=== PATIENT | male | born 1965 | race American Indian/Alaskan Native ===

== ENCOUNTER 2017-04-15 00:31 | Emergency (ER) | payer SELFPAY ==
[2017-04-15 01:48] LABS: Basophils % (Auto) 0.7 % (0.0-1.8); Eosinophils % (Auto) 2.4 % (0.0-4.3); Hematocrit 42.6 % (35.5-45.6); Hemoglobin 14.1 gm/dl (11.8-15.2); Mean Corpuscular HGB Conc 33 % (32-34); Mean Corpuscular Hemoglobin 31 pg (28-32); Mean Corpuscular Volume 95 fl (84-94); Platelet Count 186 K/mm3 (140-440); White Blood Count 6.4 K/mm3 (4.5-11.0)
[2017-04-15 02:08] LABS: Alanine Aminotransferase 25 units/L (7-56); Albumin 4.4 g/dL (3.9-5); Albumin/Globulin Ratio 1.2 %; Alkaline Phosphatase 56 units/L (35-129); Anion Gap 13 mmol/L; Blood Urea Nitrogen 13 mg/dL (9-20); Calcium 9.3 mg/dL (8.4-10.2); Carbon Dioxide 30 mmol/L (22-30); Chloride 98.6 mmol/L (98-107); Glucose 84 mg/dL (75-100); Sodium 138 mmol/L (137-145); Total Protein 8.1 g/dL (6.3-8.2)
--- NOTE | 2017-04-15 02:25 | Cat Scan Report ---
FINAL REPORT EXAM: CT HEAD/BRAIN WO CON HISTORY: dizzy numbness lt hand COMPARISON: None available. TECHNIQUE: Axial images obtained skull base through vertex. FINDINGS: No acute intracranial hemorrhage, midline shift or pathologic extra axial fluid collection. Ventricles and cisterns are normal in size and configuration for the patient's age. Mendez-white differentiation preserved. Calvarium grossly intact. Visualized para-nasal sinuses and mastoid air cells are clear. Visualized orbits are grossly unremarkable. IMPRESSION: No grossly acute intracranial abnormality.
[2017-04-15 02:31] LABS: Urine Drugs of Abuse Note Disclamer
[2017-04-15 03:16] LABS: Bilirubin,Urine NEG (Negative); Blood,Urine NEG (Negative); Ketones,Urine TR mg/dL (Negative); Leukocyte Esterase,Urine NEG (Negative); Mucus,Urine 1+ /HPF; Nitrite,Urine NEG (Negative); Protein,Urine <15 mg/dL mg/dL (Negative); WBC,Urine < 1.0 /HPF (0.0-6.0)
[2017-04-15] MEDS ORDERED: NACL 0.9% 1000 ML 1,000 ML IV ONE (09:17)
[2017-04-15] MEDS ORDERED: ANTIVERT PO ONE (09:17)
--- NOTE | 2017-04-15 10:53 | Emergency Department Report ---
ED Dizziness HPI - General Chief Complaint: Dizziness Stated Complaint: DIZZINESS/ARM NUMBNESS Source: patient Mode of arrival: Ambulatory Limitations: No Limitations - History of Present Illness Initial Comments: 51 year old male presents to ED with intermittent dizziness and left hand numbness x 2weeks. patient states when he walks or stands up he feels like the ground is moving and the room is spinning. patient states he thinks he had a syncopal episode 2-3 weeks ago but it was unwitnessed by any personnel. patient is stable, neurologically intact and in no acute distress. patient denies SOB, chest pain, N/V, seizures. MD Complaint: dizziness -: Gradual, week(s) (2) Timing: intermittent Description: "room spinning" History of Same: No History of Trauma: No Severity: mild Improves With: remaining still Worsens With: movement, position Associated Symptoms: syncope. denies: ataxia, chest pain, confusion, cough, diaphoresis, fever/chills, loss of appetite, malaise, seizure, shortness of breath, weakness - Related Data Previous Rx's Medication Instructions Recorded Last Taken Type Meclizine [Antivert] 12.5 mg PO BID PRN #20 tablet 04/15/17 Unknown Rx Allergies Allergy/AdvReac Type Severity Reaction Status Date / Time No Known Allergies Allergy Unverified 04/15/17 01:13 ED Review of Systems ROS: Stated complaint: DIZZINESS/ARM NUMBNESS Other details as noted in HPI Constitutional: denies: chills, fever Eyes: denies: eye pain, eye discharge, vision change ENT: denies: ear pain, throat pain Respiratory: denies: cough, shortness of breath, wheezing Cardiovascular: denies: chest pain, palpitations Endocrine: no symptoms reported Gastrointestinal: denies: abdominal pain, nausea, diarrhea Genitourinary: denies: urgency, dysuria Musculoskeletal: denies: back pain, joint swelling, arthralgia Skin: denies: rash, lesions Neurological: headache, vertigo. denies: weakness, paresthesias, abnormal gait Psychiatric: denies: anxiety, depression Hematological/Lymphatic: denies: easy bleeding, easy bruising ED Past Medical Hx - Past Medical History Previous Medical History?: No - Surgical History Past Surgical History?: No - Medications Home Medications: Home Medications Medication Instructions Recorded Confirmed Last Taken Type Meclizine [Antivert] 12.5 mg PO BID PRN #20 tablet 04/15/17 Unknown Rx ED Physical Exam - General Limitations: No Limitations General appearance: alert, in no apparent distress - Head Head exam: Present: atraumatic, normocephalic - Eye Eye exam: Present: normal appearance, EOMI - ENT ENT exam: Present: normal exam, mucous membranes moist, TM's normal bilaterally - Neck Neck exam: Present: normal inspection. Absent: tenderness - Respiratory Respiratory exam: Present: normal lung sounds bilaterally. Absent: respiratory distress, wheezes - Cardiovascular Cardiovascular Exam: Present: regular rate, normal rhythm. Absent: systolic murmur, diastolic murmur, rubs, gallop - GI/Abdominal GI/Abdominal exam: Present: soft, normal bowel sounds. Absent: tenderness - Rectal Rectal exam: Present: deferred - Extremities Exam Extremities exam: Present: normal inspection, other (normal strength in bilateral upper extremeties and bilateral lower extremeties) - Back Exam Back exam: Present: normal inspection, full ROM - Neurological Exam Neurological exam: Present: alert, oriented X3, normal gait - Expanded Neurological Exam Expanded Neurological exam: Absent: innattentive Patient oriented to: Present: person, place, time Speech: Present: fluid speech Cranial nerves: EOM's Intact: Normal, Tongue Deviation: Normal, Facial Sensation : Normal Cerebellar function: Finger to Nose: Normal Upper motor neuron: Pronator Drift: Normal Sensory exam: Upper Extremity Light Touch: Normal, Lower Extremity Light Touch: Normal Motor strength exam: RUE: 5, LUE: 5, RLE: 5, LLE: 5 DTR: bicep (R): 2+, bicep (L): 2+, knee (R): 2+, knee (L): 2+ Best Eye Response ([place]): (4) open spontaneously Best Motor Response ([place]): (6) obeys commands Best Verbal Response ([place]): (5) oriented [place] Total: 15 - Psychiatric Psychiatric exam: Present: normal affect, normal mood - Skin Skin exam: Present: warm, dry, intact, normal color. Absent: rash ED Course Vital Signs 04/15/17 04/15/17 04/15/17 01:06 06:31 08:18 Temperature 98.8 F 98.0 F 98.2 F Pulse Rate 67 57 L 58 L Respiratory 18 18 Rate Blood Pressure 140/98 146/96 Blood Pressure 154/94 [Left] O2 Sat by Pulse 99 100 99 Oximetry 04/15/17 10:56 Temperature Pulse Rate 60 Respiratory 16 Rate Blood Pressure Blood Pressure 142/94 [Left] O2 Sat by Pulse 100 Oximetry ED Medical Decision Making - Lab Data Result diagrams: 04/15/17 01:34 04/15/17 01:34 Labs 04/15/17 04/15/17 04/15/17 01:34 01:34 01:34 WBC 6.4 RBC 4.50 Hgb 14.1 Hct 42.6 MCV 95 H MCH 31 MCHC 33 RDW 14.0 Plt Count 186 Lymph % (Auto) 34.8 Yates % (Auto) 12.3 H Eos % (Auto) 2.4 Baso % (Auto) 0.7 Lymph # 2.2 Yates # 0.8 Eos # 0.2 Baso # 0.0 Seg Neutrophils % 49.8 Seg Neutrophils # 3.2 Sodium 138 Potassium 4.0 Chloride 98.6 Carbon Dioxide 30 Anion Gap 13 BUN 13 Creatinine 1.0 Estimated GFR > 60 BUN/Creatinine Ratio 13.00 Glucose 84 Calcium 9.3 Magnesium 2.10 Total Bilirubin 0.30 AST 23 ALT 25 Alkaline Phosphatase 56 Troponin T Total Protein 8.1 Albumin 4.4 Albumin/Globulin Ratio 1.2 Urine Color Urine Turbidity Urine pH Ur Specific [place] Urine Protein Urine Glucose (UA) Urine Ketones Urine Blood Urine Nitrite Urine Bilirubin Urine Urobilinogen Ur Leukocyte Esterase Urine WBC (Auto) Urine RBC (Auto) U Epithel Cells (Auto) Urine Mucus Salicylates < 0.3 L Urine Opiates Screen Urine Methadone Screen Acetaminophen Ur Barbiturates Screen Ur Phencyclidine Scrn Ur Amphetamines Screen U Benzodiazepines Scrn Urine Cocaine Screen U Marijuana (THC) Screen Drugs of Abuse Note 04/15/17 04/15/17 04/15/17 01:34 01:49 01:49 WBC RBC Hgb Hct MCV MCH MCHC RDW Plt Count Lymph % (Auto) Yates % (Auto) Eos % (Auto) Baso % (Auto) Lymph # [place] # Eos # Baso # Seg Neutrophils % Seg Neutrophils # Sodium Potassium Chloride Carbon Dioxide Anion Gap BUN Creatinine Estimated GFR BUN/Creatinine Ratio Glucose Calcium Magnesium Total Bilirubin AST ALT Alkaline Phosphatase Troponin T Total Protein Albumin Albumin/Globulin Ratio Urine Color Yellow Urine Turbidity Clear Urine pH 6.0 Ur Specific [place] 1.023 Urine Protein <15 mg/dl Urine Glucose (UA) Neg Urine Ketones Tr Urine Blood Neg Urine Nitrite Neg Urine Bilirubin Neg Urine Urobilinogen 2.0 Ur Leukocyte Esterase Neg Urine WBC (Auto) < 1.0 Urine RBC (Auto) 6.0 U Epithel Cells (Auto) < 1.0 Urine Mucus 1+ Salicylates Urine Opiates Screen Presumptive negative Urine Methadone Screen Presumptive negative Acetaminophen < 15.0 Ur Barbiturates Screen Presumptive negative Ur Phencyclidine Scrn Presumptive negative Ur Amphetamines Screen Presumptive negative U Benzodiazepines Scrn Presumptive negative Urine Cocaine Screen Presumptive negative U Marijuana (THC) Screen Presumptive positive Drugs of Abuse Note Disclamer 04/15/17 09:43 WBC RBC Hgb Hct MCV MCH MCHC RDW Plt Count Lymph % (Auto) [place] % (Auto) Eos % (Auto) Baso % (Auto) Lymph # [place]ates # Eos # Baso # Seg Neutrophils % Seg Neutrophils # Sodium Potassium Chloride Carbon Dioxide Anion Gap BUN Creatinine Estimated GFR BUN/Creatinine Ratio Glucose Calcium Magnesium Total Bilirubin AST ALT Alkaline Phosphatase Troponin T < 0.010 Total Protein Albumin Albumin/Globulin Ratio Urine Color Urine Turbidity Urine pH Ur Specific [place] Urine Protein Urine Glucose (UA) Urine Ketones Urine Blood Urine Nitrite Urine Bilirubin Urine Urobilinogen Ur Leukocyte Esterase Urine WBC (Auto) Urine RBC (Auto) U Epithel Cells (Auto) Urine Mucus Salicylates Urine Opiates Screen Urine Methadone Screen Acetaminophen Ur Barbiturates Screen Ur Phencyclidine Scrn Ur Amphetamines Screen U Benzodiazepines Scrn Urine Cocaine Screen U Marijuana (THC) Screen Drugs of Abuse Note - Radiology Data Radiology results: report reviewed CT brain No grossly acute intracranial abnormality. - Medical Decision Making 51 year old male presents to ED with dizziness. patient has normal cardiac enzymes and EKG. patient has normal head CT. patient will be referred to PCP and ENT MD for dizziness and given RX for meclizine. patient states dizziness has decreased in nature prior to discharge. Critical care attestation.: If time is entered above; I have spent that time in minutes in the direct care of this critically ill patient, excluding procedure time. ED Disposition Clinical Impression: Dizziness of unknown cause Disposition: [id number]-01 TO HOME OR SELFCARE Is pt being admited?: No Does the pt Need Aspirin: No Condition: Stable Instructions: Vertigo (ED), How to Check Your Blood Sugar (ED), Dizziness (ED) Prescriptions: Meclizine [Antivert] 12.5 mg PO BID PRN #20 tablet PRN Reason: Vertigo Referrals: [facility] [Provider Group] - 2-3 Days [facility] [Provider Group] - 2-3 Days YOLANDA GEIGER MD [Staff Physician] - 24 Hours Forms: Work/School Release Form
[2017-04-15 10:57] VITALS: BP 142/94
== END 2017-04-15 10:55 | disposition home or self-care (01) ==
LOC: ED 00:31
DX: R42 Dizziness and giddiness (principal)
CPT/HCPCS: 36415; 70450; 80053; 80307; 81001; 83735; 84484; 85025; 93005; 93010; 96360; 99285; G0480; J7030; 80320